=== PATIENT | female | born 1995 | race Caucasian/White ===

== ENCOUNTER 2016-06-24 22:13 | Emergency (ER) | payer MEDICAID ==
[2016-06-24] MEDS ORDERED: SULFAMETH/TRIMETH DS 800/160 MG TABLET PO STA (23:00)
[2016-06-24] MEDS ORDERED: SULFAMETH/TRIMETH DS 800/160 MG TABLET PO ONE (23:02)
== END 2016-06-24 23:08 | disposition home or self-care (01) ==
DX: L03.311 Cellulitis of abdominal wall (principal); R03.0 Elevated blood-pressure reading, without diagnosis of hypertension; F17.200 Nicotine dependence, unspecified, uncomplicated
CPT/HCPCS: 99283; A9270

== ENCOUNTER 2016-06-28 21:53 | Emergency (ER) | payer MEDICAID ==
[2016-06-28] MEDS ORDERED: DOXYCYCLINE 100 MG TABLET PO ONE (22:56)
[2016-06-28] MEDS ORDERED: IBUPROFEN 600 MG TABLET PO ONE (22:56)
== END 2016-06-28 23:22 | disposition home or self-care (01) ==
DX: L02.211 Cutaneous abscess of abdominal wall (principal); F17.200 Nicotine dependence, unspecified, uncomplicated

== ENCOUNTER 2016-08-14 06:07 | Emergency (ER) | payer MEDICAID ==
[2016-08-14 06:15] VITALS: BP 134/72
[2016-08-14] MEDS ORDERED: DEXAMETHASONE 10 MG/ML VIAL PO STA (06:26)
[2016-08-14] MEDS ORDERED: DEXAMETHASONE 10 MG/ML VIAL ONE (06:33)
--- NOTE | 2016-08-14 06:38 | ED Physician Documentation ---
PD HPI HEENT - Stated complaint Stated Complaint: SORE THROAT/TIGHTNESS - Chief complaint Chief Complaint: Heent - History obtained from History obtained from: Patient, Family - History of Present Illness Timing - onset: Yesterday Timing - duration: Days (2) Timing - details: Gradual onset, Still present Location: Throat Improves: Medication Worsens: Swalllowing Associated symptoms: Congestion, Headache, Cough Similar symptoms before: Diagnosis (strep throat) Recently seen: Not recently seen - Additional information Additional information: 21 y/o female with acute onset of sore throat with a feeling of swelling in the back of the throat. She has had a problem with getting a sore throat frequently and she has had strep a number of times. Review of Systems Constitutional: reports: Sweats. denies: Fever Eyes: denies: Decreased vision Ears: denies: Ear pain Nose: reports: Rhinorrhea / runny nose, Congestion Throat: reports: Sore throat Cardiac: denies: Chest pain / pressure, Palpitations Respiratory: reports: Cough, Wheezing. denies: Dyspnea GI: denies: Nausea, Vomiting : denies: Dysuria, Frequency PD PAST MEDICAL HISTORY - Past Medical History Past Medical History: Yes Respiratory: Asthma, Other Endocrine/Autoimmune: None GI: Hemorrhoids WELDING OPERATOR: Other : Other Psych: Depression, Anxiety, Bipolar disorder - Past Surgical History Past Surgical History: Yes General: Cholecystectomy - Present Medications Home Medications: Ambulatory Orders Medication Instructions Recorded Confirmed Amox/Clav 875/125 [Augmentin 1 each PO Q12H #20 tablet 08/14/16 875/125] - Allergies Allergies/Adverse Reactions: Allergies Allergy/AdvReac Type Severity Reaction Status Date / Time cefixime Allergy Unknown Verified 06/24/16 22:50 - Social History Does the pt smoke?: Yes Smoking Status: Light tobacco smoker Does the pt drink ETOH?: Yes Does the pt have substance abuse?: Yes - Immunizations Immunizations are current?: Yes - POLST Patient has POLST: No PD ED PE NORMAL - Vitals Vital signs reviewed: Yes (hypertensive mild ) - General General: No acute distress, Well developed/nourished - HEENT HEENT: Atraumatic, PERRL, EOMI, Other (There is tympanosclerosis present bilaterally and no inflamation. The tonsils are 2+ with crypts and exudate. ) - Neck Neck: Supple, no meningeal sign, No bony TTP - Cardiac Cardiac: RRR, No murmur - Respiratory Respiratory: No respiratory distress, Other (diminished breath sounds bilaterally ) - Abdomen Abdomen: Soft, Non tender - Back Back: No CVA TTP, No spinal TTP - Derm Derm: Normal color, Warm and dry, No rash - Extremities Extremities: No deformity, No edema - Neuro Neuro: No motor deficit, No sensory deficit - Psych Psych: Normal mood, Normal affect Results - Vitals Vitals: Vital Signs - 24 hr 08/14/16 06:12 Temperature 36.6 C Heart Rate 62 Respiratory 12 Rate Blood Pressure 134/72 H O2 Saturation 95 Oxygen O2 Source Room air PD MEDICAL DECISION MAKING - ED course Complexity details: reviewed results, re-evaluated patient, considered differential, d/w patient, d/w family ED course: 21 y/o female with exudative tonsils has a negative rapid strep and a history of frequent strep infection. She is placed on amoxil after receiving decadron in the ED. Departure - Departure Disposition: 01 Home, Self Care Clinical Impression: Tonsillitis with exudate Condition: Stable Instructions: ED Peritonsillar Infec Abx No I andD Follow-Up: Mariola Pelaez, [employer] [Primary Care Provider] - Prescriptions: Amox/Clav 875/125 [Augmentin 875/125] 1 each PO Q12H #20 tablet
[2016-08-14 06:39] LABS: RAPID STREP SCREEN REAGENT QC YELLOW (YELLOW)
== END 2016-08-14 06:50 | disposition home or self-care (01) ==
LOC: ED 06:07
DX: J03.90 Acute tonsillitis, unspecified (principal); J45.909 Unspecified asthma, uncomplicated; F17.200 Nicotine dependence, unspecified, uncomplicated
CPT/HCPCS: 87070; 87430; 99282; 99283

== ENCOUNTER 2017-02-18 20:32 | Outpatient (CLI) | payer MEDICAID | END 2017-02-18 20:33 | disposition EMS.NT | LOC: EMS 20:32 | PROVIDERS: ATTEND Surgery | DX: R04.0 Epistaxis (principal) ==